=== PATIENT | female | born 1995 | race Caucasian/White ===

== ENCOUNTER 2018-07-04 01:47 | Emergency (ER) | payer BC ==
[~2018-07-04] VITALS: Ht 167.6 cm; Wt 113.6 kg
[2018-07-04 01:59] VITALS: TEMP 97.5
[2018-07-04] MEDS ORDERED: CRUTCHES MC (03:49)
[2018-07-04] MEDS ORDERED: NORCO 325 MG-51 TAB PO (03:50)
[2018-07-04 04:21] VITALS: BP 112/79; PULSE 93
== END 2018-07-04 04:21 | disposition home or self-care (01) ==
LOC: COL.ER 01:47
DX: S93.04XA Dislocation of right ankle joint, initial encounter (principal); S82.841A Displaced bimalleolar fracture of right lower leg, initial encounter for closed fracture; X50.0XXA Overexertion from strenuous movement or load, initial encounter; Y92.410 Unspecified street and highway as the place of occurrence of the external cause